=== PATIENT | female | born 1985 | race Caucasian/White ===

== ENCOUNTER → 2022-01-08 | Outpatient (CLI) | payer OTHER ==
--- NOTE | 2022-01-08 13:08 | US ---
EXAMINATION TYPE: US thyroid st tissue head/neck DATE OF EXAM: 01/08/2022 COMPARISON: NONE CLINICAL HISTORY: R94.6 ABNORMAL RESULTS OF THYROID FUNCTION STUDIES. abn labs, fatigue GLAND SIZE: Right Lobe: 6.0 x 1.8 x 2.5 cm Overall Parenchyma: heterogenous Left Lobe: 5.3 x 1.3 x 2.0 cm Overall Parenchyma: heterogeneous Isthmus Thickness: 0.4 cm NODULES RIGHT: # of nodules measured on right: 0 LEFT: # of nodules measured on left: 0 ISTHMUS: # of nodules measured in the isthmus: 0 Bilateral neck scanned, no evidence of lymphadenopathy. Heterogeneous slightly enlarged thyroid gland without discrete nodule. IMPRESSION: Findings consistent with diffuse goiter. Correlate clinically for suspected hyperthyroidi sm.
== END | disposition home or self-care (01) ==
LOC: RADUSWWP 12:07
PROVIDERS: ATTEND Family Medicine
DX: R94.6 Abnormal results of thyroid function studies (principal)
CPT/HCPCS: 76536

== ENCOUNTER → 2022-02-07 | Outpatient (CLI) | payer OTHER ==
--- NOTE | 2022-02-08 22:14 | NM ---
EXAMINATION TYPE: NM thyroid image w uptake DATE OF EXAM: 02/08/2022 COMPARISON: NONE HISTORY: Mass TECHNIQUE: Thyroid iodine uptake is calculated and images performed after the oral administration of 290 uCi 1-123 Capsule. FINDINGS: There is increased distribution of activity throughout the gland. . Salivary glands are not identified during this exam suggesting marked uptake within the thyroid. The 4 hour iodine uptake is calculated at 52% (normal range 8-14%). The 24-hour iodine uptake is josi culated at 66% (normal range 15-35%). IMPRESSION: 1. Marked uptake within the thyroid at both 4 and 24 hours.
== END | disposition home or self-care (01) ==
LOC: RADNMMAIN 09:55
PROVIDERS: ATTEND Family Medicine
DX: R94.6 Abnormal results of thyroid function studies (principal); R22.0 Localized swelling, mass and lump, head
CPT/HCPCS: 78014; A9516